=== PATIENT | female | born 1985 | race Two or more races ===

== ENCOUNTER 2018-03-28 08:10 | Emergency (ER) | payer MEDICAID ==
[2018-03-28 08:26] VITALS: BP 123/98
--- NOTE | 2018-03-28 08:35 | EDPHY ---
H & P Time Seen by Provider: 03/28/18 08:27 HPI/ROS: This patient presents with left index finger injury to the PIP joint. She explains that 2 days prior to arrival she had Tylenol in the left hand and abruptly try to swing and hit a bug on the wall which caused hyper extension of the index finger injury to the PIP joint with 8/10 pain swelling and limitation range of motion in flexion since that time. She also reveals that she injured that same finger years ago was inadvertently fold up in a folding chair with permanent swelling/prominence of the PIP since then and mild ache at baseline. She never been evaluated by a clinician for her injury to the same finger years ago. The swelling has increased since the hyper extension injury. ROS: Neuro: No numbness Integumentary: No lacerations abrasions Musculoskeletal: No other complaints 10 point review of symptoms is performed and otherwise negative with exception of pertinent positives and negatives listed in HPI and ROS Smoking Status: Former smoker Physical Exam: Physical Exam Vital signs are normal. General: No acute distress Eyes: Pupils equal and react to light. Extraocular motions are intact. Lungs: No respiratory distress. Cardiac: Brisk capillary refill is intact throughout. Pulses are 2+ and symmetric in the affected extremity. Skin: No rash or pallor. Extremities: Atraumatic normal except for left 2nd finger Left 2nd finger: Patient has circumferential swelling the PIP joint with limited range of motion in flexion due to pain. There is associated tenderness. No malrotation when viewed on end. Neuro: Alert and oriented x3 with no sensorimotor deficits to the affected finger. Initial differential diagnosis: Finger sprain, finger fracture Constitutional: Initial Vital Signs Temperature (C) 37.2 C 03/28/18 08:20 Heart Rate 80 03/28/18 08:20 Respiratory Rate 16 03/28/18 08:20 Blood Pressure 123/98 H 03/28/18 08:20 O2 Sat (%) 97 03/28/18 08:20 O2 Delivery Mode Room Air Allergies/Adverse Reactions: No Known Allergies Allergy (Verified 03/28/18 08:26) Home Medications: Medication Instructions Recorded traMADol [Ultram 50 mg (*)] 50 - 100 mg PO Q4 PRN #20 tab 03/28/18 MDM/Departure - MDM Diagnostics: Three view finger x-ray reveals small avulsion fracture to proximal middle phalanx palmar aspect of the 2nd finger by my interpretation ED Course/Re-evaluation: I counseled patient regarding her finger fracture. Splinting: Our tech placed the patient in a volar Alumafoam splint partial flexion of the finger. Patient is neurovascular intact post splint application. - Depart Disposition: Home, Routine, Self-Care Clinical Impression: Finger fracture Qualifiers: Encounter type: initial encounter Finger: index finger Fracture type: closed Phalanx: middle Fracture alignment: displaced Laterality: left Qualified Code(s) : S62.621A - Displaced fracture of middle phalanx of left index finger, initial encounter for closed fracture Condition: Good Instructions: Finger Fracture (ED) Additional Instructions: Diagnosis: Finger fracture left index finger Plan: Alumafoam splint whenever up and about. He can remove this for bathing. Continue ibuprofen for pain Tylenol and tramadol in addition if needed. No driving, alcohol work on tramadol. Call the hand specialist listed below to arrange follow-up appointment for a recheck to help guide duration of treatment etc. Prescriptions: traMADol [Ultram 50 mg (*)] 50 - 100 mg PO Q4 PRN #20 tab PRN Reason: breakthrough pain Referrals: Heladio Mccullough MD [Primary Care Provider] - As per Instructions Issa Haney MD [Medical Doctor] - As per Instructions
== END 2018-03-28 09:03 | disposition home or self-care (01) ==
LOC: CED 08:10
DX: S62.621A Displaced fracture of middle phalanx of left index finger, initial encounter for closed fracture (principal); W22.09XA Striking against other stationary object, initial encounter; Y93.89 Activity, other specified; Z87.891 Personal history of nicotine dependence
CPT/HCPCS: 73140-PO; L3925